=== PATIENT | male | born 1935 | race Caucasian/White ===

== ENCOUNTER → 2024-06-10 10:22 | Outpatient (REF) | payer OTHER, SELFPAY | LOC: HWRAD 10:22 | PROVIDERS: ATTENDING PHYSICIAN Physician Assistant; FAMILY PHYSICIAN Family Medicine | DX: Z13.820 Encounter for screening for osteoporosis (principal); E83.52 Hypercalcemia; E34.9 Endocrine disorder, unspecified; M85.88 Other specified disorders of bone density and structure, other site | CPT/HCPCS: 77080; 77081 ==

== ENCOUNTER → 2024-11-18 10:51 | Outpatient (REF) | payer OTHER, SELFPAY ==
[2024-11-18 12:06] LABS: ALT (SGPT) < 10 U/L (0-50); AST (SGOT) 15 U/L (17-59); Albumin 3.8 g/dl (3.5-5.0); Alkaline Phosphatase 49 U/L (38-126); Blood Urea Nitrogen 25 mg/dl (9-20); Calcium 10.6 mg/dl (8.4-10.2); Carbon Dioxide 30 mmol/L (22-30); Chloride 101 mmol/L (98-107); Glucose 153 mg/dl (70-99); Potassium 4.0 mmol/L (3.5-5.1); Sodium 137 mmol/L (135-145); Total Protein 6.1 g/dl (6.3-8.2); eGFR > 60.00
[2024-11-18 12:34] LABS: TSH 2.02 uIU/ml (0.47-4.68)
== END ==
LOC: OLABWIL 10:51
PROVIDERS: ATTENDING PHYSICIAN Physician Assistant
DX: E83.52 Hypercalcemia (principal)
CPT/HCPCS: 36415; 80053; 82330; 83970; 84443

== ENCOUNTER → 2025-01-27 10:19 | Outpatient (REF) | payer OTHER, SELFPAY ==
[2025-01-27 11:44] LABS: ALT (SGPT) 11 U/L (0-50); AST (SGOT) 17 U/L (17-59); Albumin 3.9 g/dl (3.5-5.0); Alkaline Phosphatase 50 U/L (38-126); Blood Urea Nitrogen 22 mg/dl (9-20); Calcium 10.4 mg/dl (8.4-10.2); Carbon Dioxide 27 mmol/L (22-30); Chloride 102 mmol/L (98-107); Glucose 153 mg/dl (70-99); HDL Cholesterol 46 mg/dl; LDL Cholesterol, Calculated 63 mg/dl; Potassium 3.9 mmol/L (3.5-5.1); Sodium 136 mmol/L (135-145); Total Protein 6.2 g/dl (6.3-8.2); Very Low Density Lipoprotein 13 mg/dl (0-30); eGFR > 60.00
[2025-01-27 12:47] LABS: Glycohemoglobin (HgbA1c) 6.9 % (4.0-5.6)
== END ==
LOC: OLABWIL 10:19
PROVIDERS: ATTENDING PHYSICIAN Family Medicine
DX: E11.21 Type 2 diabetes mellitus with diabetic nephropathy (principal); E78.2 Mixed hyperlipidemia
CPT/HCPCS: 36415; 80053; 80061; 82330; 83036; 83970

== ENCOUNTER → 2025-01-29 13:04 | Outpatient (REF) | payer OTHER, SELFPAY ==
[2025-01-29 14:16] LABS: Microalbumin, Random Urine 5.1 mg/dl (0.6-1.7)
[2025-01-29 16:48] LABS: Microalb - Urine Creatinine 47.500 mg/dl
== END ==
LOC: CLAB 13:04
PROVIDERS: ATTENDING PHYSICIAN Family Medicine
DX: E11.21 Type 2 diabetes mellitus with diabetic nephropathy (principal); E78.2 Mixed hyperlipidemia
CPT/HCPCS: 82043; 82570

== ENCOUNTER → 2025-02-17 12:20 | Outpatient (REF) | payer OTHER, SELFPAY ==
[2025-02-17 13:34] LABS: Hematocrit 38.3 % (39.0-52.0); Hemoglobin 12.5 g/dL (13.0-18.0); Mean Corp Hgb Conc. 32.6 g/dL (33.0-37.0); Mean Corpuscular Volume 96.5 fL (80.0-94.0); Nucleated Red Blood Cells % 0 % (-); Platelet Count 250 10^3/uL (130-400); Red Cell Dist. Width 13.6 % (11.5-14.5)
[2025-02-17 14:00] LABS: C-Reactive Protein < 5.00 mg/L (0.0-10.00)
[2025-02-19 12:15] LABS: Rheumatoid Agglutinin Less Than 10 IU (<10 IU)
[2025-02-19 12:25] LABS: Lyme Antibody Screen, EIA Negative (Negative)
== END ==
LOC: OLABWIL 12:20
PROVIDERS: ATTENDING PHYSICIAN Family Medicine
DX: M25.512 Pain in left shoulder (principal); M25.511 Pain in right shoulder
CPT/HCPCS: 36415; 85025; 85652; 86140; 86430; 86618

== ENCOUNTER → 2025-02-18 09:12 | Outpatient (REF) | payer OTHER, SELFPAY | LOC: RAD 09:12 | PROVIDERS: ATTENDING PHYSICIAN Family Medicine | DX: R05.3 Chronic cough (principal); M54.16 Radiculopathy, lumbar region; M25.511 Pain in right shoulder; M25.512 Pain in left shoulder | CPT/HCPCS: 71046; 72110; 73030 ==

== ENCOUNTER 2025-03-13 21:34 | Observation (INO) | payer OTHER, SELFPAY ==
[2025-03-13] VITALS (12 sets, daily range): BP systolic 112–150; BP diastolic 54–84; PULSE 70–82; BMI 25.2
[2025-03-13 14:24] LABS: Glucose - Point of Care 171 mg/dl (70-99)
[2025-03-13 15:22] LABS: Hematocrit 38.9 % (39.0-52.0); Hemoglobin 13.3 g/dL (13.0-18.0); Mean Corp Hgb Conc. 34.2 g/dL (33.0-37.0); Mean Corpuscular Volume 92.8 fL (80.0-94.0); Nucleated Red Blood Cells % 0 % (-); Platelet Count 286 10^3/uL (130-400); Red Cell Dist. Width 13.5 % (11.5-14.5)
[2025-03-13 15:34] LABS: ALT (SGPT) 13 U/L (0-50); AST (SGOT) 19 U/L (17-59); Albumin 4.5 g/dl (3.5-5.0); Alkaline Phosphatase 65 U/L (38-126); Blood Urea Nitrogen 19 mg/dl (9-20); Calcium 10.7 mg/dl (8.4-10.2); Carbon Dioxide 33 mmol/L (22-30); Chloride 95 mmol/L (98-107); Glucose 189 mg/dl (70-99); Potassium 3.6 mmol/L (3.5-5.1); Sodium 134 mmol/L (135-145); Total Protein 7.0 g/dl (6.3-8.2); eGFR > 60.00
[2025-03-13] MEDS: NSS 1000 IV (15:54)
[2025-03-13 16:02] LABS: Troponin I 0.021 ng/ml
--- NOTE | 2025-03-13 16:05 | ED.GENMED ---
History of Present Illness
General
Chief Complaint: Dizziness
Time Seen by Provider: 03/13/25 15:10
History of Present Illness
History of Present Illness:
89-year-old male with past medical history of arthritis, diabetes, hyperlipidemia presenting to the emergency department for dizziness and lightheadedness. Patient presents from physical therapy. Patient was getting physical therapy for his
arthritis. Notes that he typically tolerates it very well, had been at the facility for about an hour. He was doing exercises with a ball between his legs and started to feel lightheaded. They stopped the activity and symptoms improved, however
once he started again the symptoms returned. Denies any prodromal chest pain or difficulty breathing. Notes that he is not currently feeling lightheaded. Does note that he ate and drank prior to his physical therapy. Denies focal weakness or
sensory deficits. Denies fever or recent illness. Denies abdominal pain or GI symptoms. Denies additional acute medical complaints
Past History
Past History
ED Past Medical History: HTN, Hypercholesterolemia, NIDDM and Other (Diverticulitis)
ED Past Surgical History: Appendectomy, Cholecystectomy and Orthopedic (Bila knee replacements)
Social History
Tobacco: Former smoker
Alcohol: Occasional
Personal:
Living: with family (daughter)
Phy Exam
Physical Exam
Physical Exam:
General: Well-appearing, no clinical signs of dehydration, nontoxic and in no acute distress
HEENT: protecting airway, pupils equal and reactive
Neck: appears supple
CV: Normal heart rate, regular rhythm
Resp: No accessory muscle use, no increased work of breathing, lungs clear to auscultation bilaterally
Abd: Soft and non-distended, no tenderness to palpation
Extremities: No deformities, no swelling, no erythema
Neuro: alert, no focal neurologic deficit
: deferred
Rectal: deferred
Psych: Normal affect
Skin: Intact
Course
Orders/Labs/Results
Orders:
Orders
03/13/25 14:04
EKG [Electrocardiogram (*1)] Urgent
Reason for Study: Vertigo / Dizzy
EKG- Treatment ONCE
03/13/25 15:14
Complete Blood Count/With Diff Urgent
Comprehensive Metabolic Panel Urgent
Troponin I Urgent
03/13/25 15:50
Orthostatic VS- Treatment ONCE
0.9% Sodium Chloride 1000 ml [Nss] 1,000 ml IV BOLUS
03/13/25 16:32
EKG- Treatment ONCE
03/13/25 17:23
CT Head W/o Iv Contrast Urgent
Comment:
Reason For Exam: dizziness, off-balance
03/13/25 17:47
Troponin I Urgent
03/13/25 18:00
Electrocardiogram (*1) Urgent
Reason for Study: Vertigo / Dizzy
03/13/25 18:30
Urinalysis Reflex To Culture Urgent
Date Specimen was Collected: 03/13/25
Time Specimen was Collected: 18:28
Urine Microscopic Reflex Cult Urgent
Abnormal Lab Results
03/13/25 03/13/25 03/13/25
14:21 15:14 18:30
RBC 4.19 L 10^6/uL
(4.70-6.10)
Hct 38.9 L %
(39.0-52.0)
MCH 31.7 H pg
(27.0-31.0)
Absolute Neuts (auto) 8.3 H 10^3/uL
(1.4-6.5)
Neutrophils % 79.2 H %
(42.2-75.2)
Lymphocytes % 14.4 L %
(20.5-51.1)
Sodium 134 L mmol/L
(135-145)
Chloride 95 L mmol/L
(98-107)
Carbon Dioxide 33 H mmol/L
(22-30)
Glucose 189 H mg/dl
(70-99)
Calcium 10.7 H mg/dl
(8.4-10.2)
Urine Glucose 1+ A
(Negative)
Urine Albumin (Reflex) 2+ A
(Neg - Trace)
POC Glucose 171 H mg/dl
(70-99)
03/13/25 15:14
03/13/25 15:14
Vital Signs
Initial and Last Documented VS:
Initial Vital Signs
Temp Pulse Resp BP Pulse Ox
98.2 F 70 16 147/70 98
03/13/25 14:13 03/13/25 14:13 03/13/25 14:13 03/13/25 14:13 03/13/25 14:13
Last Documented Vital Signs
Temp Pulse Resp BP Pulse Ox
97.7 F 76 10 129/72 99
03/13/25 19:40 03/13/25 19:37 03/13/25 18:41 03/13/25 19:00 03/13/25 19:40
MDM/Problems Addressed
MDM/Problems Addressed:
89-year-old male with history of hypertension, hyperlipidemia, diabetes presenting to the emergency department for dizziness and lightheadedness. Vital signs on arrival are normal.
On exam patient is resting comfortably, no acute distress or discomfort. Unremarkable cardiac, pulmonary, neurologic exam. Slight dryness to mucous membranes. Ultimately suspect mild dehydration and volume depletion. Lower suspicion for any
serious intracranial abnormality, again reassuring neurologic exam. EKG obtained on arrival, nonischemic, right bundle branch block, unchanged from prior. No arrhythmias. Patient afebrile, nontoxic with lower suspicion for infectious pathology.
Will treat patient with IV fluids and screen with laboratory analysis. Will also obtain orthostatic vital signs and reassess.
17:20 -Patient's labs are unremarkable. Patient notes that he feels better after fluids. Orthostatics are negative. However when patient ambulated, felt very unsteady with reported shuffling gait. For this reason will obtain CT head imaging.
Will also check urinalysis. Initial troponin is detectable, however normal. Will send follow-up
20:10 - Repeat troponin remained stable. Urine without sign of infection. CT head negative. Patient reports that he still feels too unsteady.. For this reason we will admit for continued hydration and PT/OT consultation
*Pulse Oximetry
SaO2: 100
Oxygen Mode of Delivery: Room air
Patient hypoxic: no
*EKG
Interpreted by ED Provider?: Yes
EKG Intrepretation Date: 03/13/25
EKG Intrepretation Time: 16:07
Interpretation: normal
Comparison EKG: no changes
Heart Rate: 73
Rate: normal
Rhythm: sinus and PVC's
[place]: normal axis
QRS Pattern: right bundle branch block
Ischemia: no ischemia
*Critical Care Note
Total Time (30-74mins, 75-104mins- exclusive of procedures): Not Applicable
ED Attending Note
-
Portions of this chart may have been created with voice recognition software.� Occasional wrong word or��sound alike� substitutions may have occurred due to the inherent limitations of voice recognition software.
Discharge Plan
Departure
Prescriptions:
No Action
Aspirin
81 mg PO DAILY
allopurinol 100 MG tablet
100 mg PO DAILY
simvastatin 40 MG tablet
40 mg PO HS
metformin 1,000 MG tablet
1,000 mg PO BID
Fish Oil
2 tab PO DAILY
Indapamide
2.5 mg PO DAILY
Lisinopril
40 mg PO DAILY
hydrocodone-acetaminophen 1 TABLET tablet
1 tab PO Q4HPRN PRN (Reason: Severe pain) Qty: 10 0RF
Referrals:
Jeffry Marcos MD [Family Provider, Family Practice]
Interventions
Interventions:
*Risk Screen - Suicide Last Done: 03/13/25 14:13
*General Assessment Last Done: 03/13/25 16:00
*Neglect/Abuse Screening Last Done: 03/13/25 14:13
[facility] Fall Risk Assessment Tool Last Done: 03/13/25 16:00
ED- Neurological Assessment Last Done: 03/13/25 16:00
ED Swallowing Screen Last Done: 03/13/25 16:00
Discharge Date and Time
Print Language: EGYPTIAN
[2025-03-13 18:24] LABS: Troponin I 0.020 ng/ml
[2025-03-13 19:05] LABS: Urine Character Clear (Clear)
[2025-03-13 19:18] LABS: Urine Red Blood Cell 0-2 /HPF (0-2); Urine White Cell 0-2 /HPF (0-5)
--- NOTE | 2025-03-13 20:36 | HPS.HSE ---
Family Physician
-
Family Physician: Jeffry Marcos
Chief Complaint
-
Dizziness
History of Present Illness
Patient is an 89 y/o male past medical history of diabetes, hypertension, hyperlipidemia and hyperparathyroidism who presents with dizziness. Patient was at his usual PT session today doing an exercise where he was lying on the floor squeezing a
ball between his knee when he developed acute onset of dizziness which he describes as a spinning sensation. He rested and noted the symptoms went away. He went back to doing some exercises and noted after a while his symptoms returned prompting
him to come to the emergency department. Patient reports any prior similar episodes. He denies any focal numbness, tingling or weakness. He denies any changes in hearing, rhinorrhea or sore throat. While in the emergency department patient
received some IVFs as he noted he did not eat or drink anything prior to his PT session today, and notes improvement in his symptoms, but states he is still feeling unsteady.
Medical History
Past Medical History
Past Medical History: Reports Other
Additional Past Medical History:
Diabetes Mellitus, Type II
Essential Hypertension
Hyperlipidemia
Hyperparathyroidism
Gout
Past Surgical History: Reports Other
Additional Past Surgical History:
Cholecystectomy
Knee Replacement
Cataracts
Social History
Tobacco: Former Smoker (Quit over 50 years ago)
Living: Other ([facility])
Family History
Family History: Not pertinent
Allergies / Home Medications
Allergies reflects when Allergies were last updated in [employer].
Home Medications with original date entered in [employer]
Allergy/Medication List:
Allergies
Allergy/AdvReac Type Severity Reaction Status Date / Time
No Known Allergies Allergy Verified 03/13/25 14:12
Home Medications
allopurinol 100 mg tablet 200 mg PO DAILY Gout 02/18/09
aspirin 81 mg tablet,delayed release 81 mg PO DAILY 02/18/09
indapamide 2.5 mg tablet 5 mg PO DAILY 02/18/09
lisinopril 40 mg tablet 40 mg PO DAILY 02/18/09
omega 5-mgw-cst-fish oil 1,000 mg (120 mg-180 mg) capsule (Fish Oil) 1 cap PO DAILY 02/18/09
simvastatin 40 mg tablet 40 mg PO HS High Cholesterol 02/18/09
Review of Systems
-
A 12 point ROS was completed and negative except as noted: Yes
Constitutional: Denies Fever
Respiratory: Denies Cough or Trouble Breathing
Cardiac: Denies Chest Pain or Palpitations
Physical Exam
Vital Signs
Vital Signs
Temp Pulse Resp BP Pulse Ox
97.7 F 76 10 129/72 99
03/13/25 19:40 03/13/25 19:37 03/13/25 18:41 03/13/25 19:00 03/13/25 19:40
Physical Exam
General: Comfortable and Conversant
HEENT: NormoCephalic, Anicteric, Atraumatic and Other (EOMI without nystagmus; Mucous membranes are dry)
Respiratory: Clear and Non Labored Respirations
Cardiac: S1/S2, Regular Rhythm and Murmur
GI: Soft and Non Distended
Rectal: Deferred by Provider
Musculoskeletal: No Clubbing and No Cyanosis
Skin: Warm and Dry
Neuro: Awake, Alert, Oriented and No Motor Deficits
Psych: Calm
Laboratory Results
-
03/13/25 15:14
03/13/25 15:14
Laboratory Results
Total Bilirubin 0.9 mg/dl (0.2-1.3) 03/13/25 15:14
AST 19 U/L (17-59) 03/13/25 15:14
ALT 13 U/L (0-50) 03/13/25 15:14
Alkaline Phosphatase 65 U/L (38-126) 03/13/25 15:14
Troponin I 0.020 ng/ml 03/13/25 17:47
Data Reviewed
-
Lab Data: Labs Reviewed by me
Impression/Plan
-
Dizziness, suspect related to volume depletion
-Orthostatics negative following IVFs given in ED - Recheck orthostatic VS in AM
-Patient reports known cardiac murmur, but no echocardiogram available in our system - Consider echocardiogram on Sunday if patient is still hospitalized
-Hold indapamide
Ambulatory Dysfunction
-Consult PT/OT
Diabetes Mellitus, Type II
-HgbA1c 6.9 in January 2025
-Continue metformin and pioglitazone
-Monitor sugars and continue coverage insulin
Essential Hypertension
-Hold indapamide
-Continue lisinopril
Hyperlipidemia
-Continue simvastatin
Hyperparathyroidism
-Overall calcium level appears stable
-Ionized calcium in Jan 2025 was within normal limits
Gout
-Continue allopurinol
DVT proph: SCDs
Code Status: Full Code
--- NOTE | 2025-03-13 21:30 | W.PN.UPDATE ---
Update Note
Progress Note Update
Attending note.
Patient seen independently
I agree with PA note
89-year-old man with past medical history of:
arthritis,
diabetes,
hyperlipidemia
presents to the emergency department for dizziness and lightheadedness. He was getting physical therapy for his arthritis where he was doing exercises with a ball between his legs and started to feel lightheaded. Denies any prodromal chest pain or
difficulty breathing. He did not eat or drink prior to his physical therapy. Denies focal weakness or sensory deficits. Denies fever or recent illness. Denies abdominal pain or GI symptoms. Denies additional acute medical complaints
Past medical History
essential HTN,
Hypercholesterolemia,
NIDDM
Diverticulitis
Appendectomy,
Cholecystectomy
Bila knee replacements
Cataract surgery
Physical Exam
General: Well-appearing, +clinical signs of dehydration, nontoxic and in no acute distress
Dry mucous membranes
CV: Normal heart rate, regular rhythm
Resp: No accessory muscle use, no increased work of breathing, lungs clear to auscultation bilaterally
Abd: Soft and non-distended, no tenderness to palpation
Extremities: No deformities, no swelling, no erythema
Neuro: alert, no focal neurologic deficit
Skin: Intact
A/P:
89 man who felt lightheaded in PT and looks dehydrated. BUN/Creat >20
1. dehydration - likely from decreased po intake and PT
IV fluids
PO fluids
PT in am
Recheck labs in am
Please see PA note for other details.
Full code
VCD for DVTp
[2025-03-13 23:26] LABS: Glucose - Point of Care 240 mg/dl (70-99)
[2025-03-13] MEDS: LIPITOR 20 MG PO (23:45)
[2025-03-14 07:45] LABS: Blood Urea Nitrogen 15 mg/dl (9-20); Calcium 10.2 mg/dl (8.4-10.2); Carbon Dioxide 32 mmol/L (22-30); Chloride 97 mmol/L (98-107); Estimated Creatinine Clearance 77 ml/min; Glucose 193 mg/dl (70-99); Potassium 3.3 mmol/L (3.5-5.1); Sodium 132 mmol/L (135-145); eGFR > 60.00
[2025-03-14 08:06] LABS: Glucose - Point of Care 165 mg/dl (70-99)
[2025-03-14] MEDS: ZESTRIL 40 MG PO (08:06)
[2025-03-14] MEDS: NOVOLOG FLEXPEN-LOW RESISTANCE 1 UNITS SC ×2 (08:06→12:32)
[2025-03-14] MEDS: ACTOS 15 MG PO (08:07)
[2025-03-14] MEDS: ASPIR LOW (ENTERIC COATED) 81 MG PO (08:07)
[2025-03-14] MEDS: GLUCOPHAGE XR EXTENDED RELEASE 1000 MG PO (08:07)
[2025-03-14] MEDS: ZYLOPRIM 200 MG PO (08:07)
[2025-03-14 08:36] VITALS: BP 122/57
[2025-03-14] MEDS: KCL 40 MEQ PO (10:34)
[2025-03-14 11:36] VITALS: BP 117/60; BP 117/61; BP 118/62; PULSE 62; PULSE 64; PULSE 71
[2025-03-14 11:38] VITALS: BP 117/62
[2025-03-14 11:55] VITALS: BP 128/65
--- NOTE | 2025-03-14 12:00 | W.PN.HOSP.TC ---
Today's Communication/Plan
-
Possible dc home today if orthostatics negative and no further dizziness when working with PT
Assessment / Plan
Assessment / Plan
89M with DM2, HTN, arthritis, P/W dizziness during PT.
Dizziness
suspect related to volume depletion
-Orthostatics negative following IVFs given in ED - Recheck orthostatic VS today
-Patient reports known cardiac murmur, but no echocardiogram available in our system - order echocardiogram if patient is still hospitalized, if not can refer for outpt echo
-Hold indapamide
Ambulatory Dysfunction
-Consult PT/OT, if they feel stable for home can discharge today
Diabetes Mellitus, Type II
-HgbA1c 6.9 in January 2025
-Continue metformin and pioglitazone
-Monitor sugars and continue coverage insulin
Essential Hypertension
-Hold indapamide inpt
-Continue lisinopril
BP controlled
Hyperlipidemia
-Continue simvastatin
Hyperparathyroidism
-Overall calcium level appears stable
-Ionized calcium in Jan 2025 was within normal limits
Gout
-Continue allopurinol
DVT proph: SCDs
Anticipated Discharge: Today
Subjective/Interval History
-
Date of Service: March 14, 2025
Patient felt lightheaded/room spinning dizziness while ambulating to bathroom today. Daughters and friend at bedside. Wants to go home today.
Objective Data
-
Labs:
Laboratory Results
03/14/25
06:36
Sodium 132 L
Potassium 3.3 L
Chloride 97 L
Carbon Dioxide 32 H
BUN 15
Creatinine 0.7
Glucose 193 H
Calcium 10.2
Vital Signs:
Vital Signs
Temp Pulse Resp BP Pulse Ox
98.0 F 64 16 117/62 98
03/13/25 22:22 03/14/25 11:38 03/14/25 11:38 03/14/25 11:38 03/14/25 11:38
I&O
03/13/25 03/14/25 03/15/25
06:59 06:59 06:59
Intake Total 200 / 200
Output Total 475 / 475 350 / 350
Balance -275 / -275 -350 / -350
Review of Systems
-
History Source: Patient
All other systems: Reviewed and negative
Physical Exam
-
General: No Apparent Distress
HEENT: Moist Mucous Membranes, Anicteric and PERRLA
Respiratory: Clear to Auscultation; Negative Wheezes, Rales or Rhonchi
Cardiac: Regular Rhythm, S1/S2 and Murmur; Negative Rub or Gallop
GI: Soft, Nontender, Nondistended and Normal Bowel Sounds
Musculoskeletal: No Edema
Skin: Warm and Dry; Negative Rash, Ulcers or Lesions
Neuro: Awake and AO x 3
Hematologic / Lymphatic: No Lymphadenopathy
Psych: Calm
Data Reviewed
-
Labs: Labs Reviewed by me and Discussed with Patient
Old Records: Reviewed
[2025-03-14 12:05] VITALS: BP 128/65
[2025-03-14 12:37] LABS: Glucose - Point of Care 150 mg/dl (70-99)
--- NOTE | 2025-03-14 14:51 | W.DCSUMMARY ---
Discharge Summary
Discharge Data
Date of Admission: 03/13/25
Date of Discharge: 03/14/25
Total time spent discharging patient (in min): 31
-
Pending Results: No
Hospital Course
Attending physician on day of discharge:
Megha Raines MD
Discharge diagnosis:
Dizziness, dehydration
Secondary diagnoses:
HTN
Heart murmur
Consultations:
None
Procedures:
None
Hospital course:
89M with DM2, HTN, arthritis, P/W dizziness during PT. felt to be dehydrated, given IVF in the ED, orthostatics were negative x 2. Patient worked again with PT and OT he did not experience any more dizziness and was felt stable for discharge home.
Regarding his known murmur, no echo in our system, given he was discharged he was advised to follow-up with his PCP for outpatient workup, possibly echo.
Physical exam on discharge:
See note
Discharge disposition:
Home
Discharge Plan
-
Patient Disposition: Home (Routine Discharge)
Discharge Diagnosis/Procedures: Dizziness, dehydration
Diet: Regular
Activity: As tolerated
Referrals:
Jeffry Marcos MD [Family Provider, [facility]]
Additional Discharge Medication Instructions: Stay well hydrated. Follow up with your PCP regarding your known heart murmur, as they may order an echocardiogram.
Prescriptions:
Continued
indapamide 2.5 mg Tablet
5 mg PO DAILY
allopurinol 100 MG tablet
200 mg PO DAILY
aspirin 81 mg Tablet,Delayed Release (Dr/Ec)
81 mg PO DAILY
simvastatin 40 MG tablet
40 mg PO HS
lisinopril 40 mg Tablet
40 mg PO DAILY
omega 2-glu-erp-fish oil [Fish Oil] 1,000 (120-180) mg Capsule
1 cap PO DAILY
pioglitazone [Actos] 15 mg Tablet
15 mg PO DAILY
polyethylene glycol 3350 [Miralax] 17 gram Powder In Packet
17 g PO DAILYPRN PRN (Reason: constipation)
metformin 500 mg Tablet Extended Release 24 Hr
1,000 mg PO BID
Discharge Orders:
Discharge Patient (As Directed); Ordered 03/14/25
Ordered By: Megha Raines
Discharge Date and Time
Print Language: UGANDAN
[2025-03-14 16:06] VITALS: BP 120/58
[2025-03-14] MEDS: NOVOLOG FLEXPEN-LOW RESISTANCE SC (16:13)
--- NOTE | 2025-03-14 16:25 | CM ---
Patient seen at bedside x2 and family present. Patient reviewed OBS/BARAKAT form and signed copy placed on chart. Patient stated that he lives alone but spends each night with his girlfriend. Patient PCP is Dr. Bustamante and he uses no DME. Patient now
stated that he has a walker he will borrow from a friend. patient Pharmacy is [facility] in [place]. Patient family declined Advance directive information. Patient now for discharge home with no needs. Patient for discharge home with family. CM
will continue to follow for discharge planning needs.
Plan; home with no needs
--- NOTE | 2025-03-14 16:29 | CM ---
Patient seen at bedside x2 and family present. Patient reviewed OBS/BARAKAT form and signed copy placed on chart. Patient stated that he lives alone in an apartment but spends each night with his girlfriend. Patient PCP is Dr. Marcos and he uses no DME.
Patient now stated that he has a walker he will borrow from a friend. patient Pharmacy is [facility] in [place]. Patient now for discharge home with no needs. Patient for discharge home with family. CM will continue to follow for discharge
planning needs.
Plan; home with no needs
== END 2025-03-14 17:11 | disposition home or self-care (01) ==
LOC: 4 WEST ACU 21:34
PROVIDERS: Physician Assistant Medical; Student in an Organized Health Care Education/Training Program; ADMITTING PHYSICIAN Internal Medicine; ATTENDING PHYSICIAN Internal Medicine; EMERGENCY PHYSICIAN Student in an Organized Health Care Education/Training Program; FAMILY PHYSICIAN Family Medicine
DX: R42 Dizziness and giddiness (principal); E86.0 Dehydration; I10 Essential (primary) hypertension; E11.9 Type 2 diabetes mellitus without complications; R01.1 Cardiac murmur, unspecified; E21.3 Hyperparathyroidism, unspecified; E78.00 Pure hypercholesterolemia, unspecified; M10.9 Gout, unspecified; Z79.84 Long term (current) use of oral hypoglycemic drugs; R26.2 Difficulty in walking, not elsewhere classified; Z79.899 Other long term (current) drug therapy; Z87.891 Personal history of nicotine dependence
CPT/HCPCS: 70450; 80048; 80053; 81003; 81015; 82330; 82962; 84484; 85025; 93005; 96360; 97162; 97166; 99285; G0378